=== PATIENT | male | born 1980 | race Caucasian/White ===

== ENCOUNTER → 2017-10-30 | Outpatient (CLI) | payer OTHER ==
[~2017-10-30] MED LIST: AMBI10TA OR; ATIV1TAB2 OR; CELE20TA OR; HALDOL PO; LITH300T2 OR; LITHIUM PO
[2017-10-30 17:38] LABS: LITHIUM LEVEL 0.58 MEQ/L (0.60-1.20)
== END ==
LOC: M WUC 11:04
PROVIDERS: ATTEND Nurse Practitioner Psychiatric/Mental Health
DX: F31.13 Bipolar disorder, current episode manic without psychotic features, severe (principal)

== ENCOUNTER 2019-03-06 10:31 | Emergency (ER) | payer OTHER ==
[~2019-03-06] VITALS: Ht 167.6 cm; Wt 68.2 kg
[2019-03-06] MEDS ORDERED: ADDE20CA3 PO (10:39)
[2019-03-06] MEDS ORDERED: DEPA500T2 PO (10:39)
[2019-03-06] MEDS ORDERED: KLON2TAB PO (10:39)
[2019-03-06] MEDS ORDERED: ABIL20TA5 PO (10:39)
--- NOTE | 2019-03-06 11:31 | REP ---
RIGHT HAND SERIES: Four views. HISTORY: Injury. FINDINGS: There is a comminuted slightly impacted and angulated boxer's fracture of the distal end of the 5th metacarpal. The angulation is apex dorsal. There is associated swelling. No other fracture is seen. IMPRESSION: Boxer's fracture distal aspect 5th metacarpal with apex dorsal angulation and impaction. Electronically Signed by Gregorio Ochoa MD 03/06/2019 01:37 P
[2019-03-06 12:13] VITALS: BP 121/68
== END 2019-03-06 12:14 | disposition home or self-care (01) ==
LOC: M ED 10:31
DX: S62.316A Displaced fracture of base of fifth metacarpal bone, right hand, initial encounter for closed fracture (principal); X58.XXXA Exposure to other specified factors, initial encounter; Y92.89 Other specified places as the place of occurrence of the external cause; Z79.899 Other long term (current) drug therapy

== ENCOUNTER 2021-12-26 11:14 | Emergency (ER) | payer MEDICARE, MEDICAID ==
[~2021-12-26 11:14] MED LIST changes: +ABIL20TA5 PO; +ADDE20CA3 PO; +DEPA500T2 PO; +KLON2TAB PO
[2021-12-26] MEDS ORDERED: QUET400T2 PO (11:26)
[2021-12-26] MEDS ORDERED: BUPR300T92 PO (11:26)
[2021-12-26] MEDS ORDERED: LAMO150T3 PO (11:26)
[2021-12-26] MEDS ORDERED: PRAZ1CAP PO (11:26)
[2021-12-26] MEDS ORDERED: ACETAMINOPHEN TAB 650MG DOSE (2X325MG) PO ONE (11:55)
[2021-12-26] MEDS ORDERED: ACETAMINOPHEN 500 MG TAB PO ONE (11:55)
[2021-12-26 12:08] LABS: BASO % 0.2 % (0.0-1.0); EOS % 0.3 % (0.0-3.0); HEMATOCRIT 38.6 % (42.0-52.0); HEMOGLOBIN 13.1 g/dl (13.5-17.5); LYMPH # 0.9 10^3/uL (1.5-5.0); LYMPH % 8.3 % (24.0-44.0); MEAN CORPUSCULAR HEMOGLOBIN 29.3 pg (27.0-33.0); MEAN CORPUSCULAR HGB CONC 33.9 g/dl (32.0-36.5); MEAN CORPUSCULAR VOLUME 86.4 fl (80.0-96.0); MONO # 1.2 10^3/uL (0.0-0.8); NEUTROPHILS # 8.4 10^3/uL (1.5-8.5); NEUTROPHILS % 79.9 % (36.0-66.0); PLATELET COUNT, AUTOMATED 172 10^3/uL (150-450); RED BLOOD COUNT 4.47 10^6/uL (4.30-6.10); WHITE BLOOD COUNT 10.6 10^3/uL (4.0-10.0)
[2021-12-26 12:30] LABS: ALBUMIN 3.7 GM/DL (3.2-5.2); ALT/SGPT 121 U/L (12-78); BILIRUBIN,DIRECT 0.4 MG/DL (0.0-0.2); BLOOD UREA NITROGEN 16 MG/DL (7-18); CALCIUM LEVEL 8.9 MG/DL (8.5-10.1); CARBON DIOXIDE LEVEL 24 MEQ/L (21-32); CHLORIDE LEVEL 101 MEQ/L (98-107); CREATININE FOR GFR 1.02 MG/DL (0.70-1.30); GLOMERULAR FILTRATION RATE > 60.0 (>60); GLUCOSE, FASTING 111 MG/DL (70-100); LIPASE 38 U/L (73-393); POTASSIUM SERUM 3.7 MEQ/L (3.5-5.1); SODIUM LEVEL 134 MEQ/L (136-145); TOTAL PROTEIN 7.1 GM/DL (6.4-8.2)
[2021-12-26] MEDS ORDERED: OSEL75CA PO (13:11)
[2021-12-26] MEDS ORDERED: PROAAER10 INH (13:22)
[2021-12-26] MEDS ORDERED: BACT800T5 PO (13:30)
[2021-12-26 13:36] VITALS: BP 121/65
== END 2021-12-26 13:38 | disposition home or self-care (01) ==
LOC: M ED 11:14
DX: J11.1 Influenza due to unidentified influenza virus with other respiratory manifestations (principal); B34.9 Viral infection, unspecified; J90 Pleural effusion, not elsewhere classified; R91.8 Other nonspecific abnormal finding of lung field

== ENCOUNTER 2021-12-28 10:09 | Inpatient (IN) | payer MEDICARE, MEDICAID ==
[~2021-12-28] VITALS: Ht 167.6 cm; Wt 77.2 kg
[~2021-12-28 10:09] MED LIST changes: +BACT800T5 PO; +BUPR300T92 PO; +LAMO150T3 PO; +OSEL75CA PO; +PRAZ1CAP PO; +PROAAER10 INH; +QUET400T2 PO
[2021-12-28] MEDS ORDERED: LIDOCAINE 1% MDV 20ML VIAL SC ONE (13:45)
[2021-12-28] MEDS ORDERED: ACETAMINOPHEN TAB 650MG DOSE (2X325MG) PO ONE (13:45)
[2021-12-28] MEDS ORDERED: NS 1,000 ML IV ONE ×2 (13:50→15:50)
[2021-12-28] MEDS ORDERED: CEFEPIME HCL 2 GM in D5W MINI-BAG PLUS 50 ML IV ONE (14:15)
[2021-12-28 14:39] LABS: BASO % 0.2 % (0.0-1.0); HEMATOCRIT 35.3 % (42.0-52.0); HEMOGLOBIN 11.9 g/dl (13.5-17.5); LYMPH # 0.6 10^3/uL (1.5-5.0); LYMPH % 4.1 % (24.0-44.0); MEAN CORPUSCULAR HEMOGLOBIN 29.1 pg (27.0-33.0); MEAN CORPUSCULAR HGB CONC 33.7 g/dl (32.0-36.5); MEAN CORPUSCULAR VOLUME 86.3 fl (80.0-96.0); MONO # 1.3 10^3/uL (0.0-0.8); MONO % 8.8 % (2.0-8.0); NEUTROPHILS # 12.9 10^3/uL (1.5-8.5); NEUTROPHILS % 85.8 % (36.0-66.0); PLATELET COUNT, AUTOMATED 194 10^3/uL (150-450); RED BLOOD COUNT 4.09 10^6/uL (4.30-6.10)
[2021-12-28 15:23] LABS: ALBUMIN 3.3 GM/DL (3.2-5.2); ALT/SGPT 82 U/L (12-78); BILIRUBIN,DIRECT 0.4 MG/DL (0.0-0.2); BILIRUBIN,TOTAL 0.7 MG/DL (0.2-1.0); BLOOD UREA NITROGEN 19 MG/DL (7-18); CALCIUM LEVEL 8.6 MG/DL (8.5-10.1); CARBON DIOXIDE LEVEL 24 MEQ/L (21-32); CHLORIDE LEVEL 98 MEQ/L (98-107); CREATININE FOR GFR 1.39 MG/DL (0.70-1.30); GLOMERULAR FILTRATION RATE > 60.0 (>60); GLUCOSE, FASTING 99 MG/DL (70-100); POTASSIUM SERUM 3.6 MEQ/L (3.5-5.1); SODIUM LEVEL 136 MEQ/L (136-145); TOTAL PROTEIN 6.9 GM/DL (6.4-8.2)
[2021-12-28] MEDS: NS 1,000 ML IV SCH ×2 (15:50→20:27)
[2021-12-28] MEDS ORDERED: VANCOMYCIN HCL 1,000 MG, VIAL MATE ADAPTER 1 EACH in NS 250 ML IV SCH (15:50)
[2021-12-28] MEDS ORDERED: ENOXAPARIN 40MG/0.4ML SYRINGE (J1650 PER 10MG) SC SCH (15:55)
[2021-12-28] MEDS ORDERED: VANCOMYCIN HCL 750 MG, VIAL MATE ADAPTER 1 EACH in NS 250 ML IV ONE ×3 (16:00→18:00)
[2021-12-28] MEDS ORDERED: VANCOMYCIN HCL 1,000 MG, VIAL MATE ADAPTER 1 EACH in NS 250 ML IV ONE ×7 (16:00→17:00)
[2021-12-28] MEDS ORDERED: ALBUTEROL SULFATE 2.5 MG/0.5 ML INH NEB SOLN NEB PRN (16:15)
[2021-12-28] MEDS ORDERED: BACT800T5 PO (16:25)
[2021-12-28] MEDS ORDERED: CLON1TAB17 PO (16:25)
[2021-12-28] MEDS ORDERED: CLON1TAB8 PO (16:28)
[2021-12-28] MEDS ORDERED: HOME MED LIST COMPLETE! XX SCH (16:30)
[2021-12-28] MEDS: PIPERACILLIN/TAZOBACTAM SOD 3.375 GM in D5W MINI-BAG PLUS 50 ML IV SCH ×2 (16:31→20:55)
[2021-12-28] MEDS ORDERED: PRAZOSIN 1 MG CAP PO PRN (17:00)
[2021-12-28 17:01] VITALS: BP 129/71
[2021-12-28 17:10] LABS: HEMOGLOBIN A1c 4.9 %
[2021-12-28] MEDS ORDERED: MORPHINE 2 MG/ML 1ML VIAL (J2270) IV PRN (17:10)
[2021-12-28] MEDS ORDERED: PILL CUTTER 1 EACH XX PRN (17:10)
[2021-12-28] MEDS ORDERED: traMADol 50 MG TAB PO PRN (17:10)
[2021-12-28 17:19] LABS: INR 1.25; PROTHROMBIN TIME 16.1 SECONDS (12.7-14.5)
[2021-12-28 17:20] LABS: PARTIAL THROMBOPLASTIN TIME 39.8 SECONDS (25.9-37.0)
[2021-12-28 17:36] LABS: D-DIMER QUANT 3573.77 ng/ml (<500)
[2021-12-28] MEDS: ACETAMINOPHEN TAB 650MG DOSE (2X325MG) PO PRN (17:43)
[2021-12-28] MEDS ORDERED: PIPERACILLIN/TAZOBACTAM SOD 3.375 GM in D5W MINI-BAG PLUS 50 ML IV SCH (18:00)
[2021-12-28] MEDS: PERCOCET 5MG/325MG TAB PO PRN (19:29)
[2021-12-28] MEDS: ENOXAPARIN 80MG/0.8ML SYRINGE (J1650 PER 10MG) SC SCH (19:30)
[2021-12-28 20:00] VITALS: BP 114/57
[2021-12-28] MEDS: DOCUSATE SODIUM 100MG CAPSULE PO SCH (20:54)
[2021-12-28] MEDS: QUEtiapine FUMARATE 200 MG TAB PO SCH (20:54)
[2021-12-29] VITALS (7 sets, daily range): BP systolic 111–132; BP diastolic 63–71
[2021-12-29] MEDS: NS 1,000 ML IV SCH ×2 (03:37→09:06)
[2021-12-29] MEDS: PIPERACILLIN/TAZOBACTAM SOD 3.375 GM in D5W MINI-BAG PLUS 50 ML IV SCH ×4 (03:37→20:56)
[2021-12-29] MEDS: ACETAMINOPHEN TAB 650MG DOSE (2X325MG) PO PRN ×2 (04:39→15:55)
[2021-12-29] MEDS: PERCOCET 5MG/325MG TAB PO PRN (05:27)
[2021-12-29] MEDS: VANCOMYCIN HCL 1,000 MG, VIAL MATE ADAPTER 1 EACH in NS 250 ML IV SCH ×2 (05:29→17:03)
[2021-12-29] MEDS: ENOXAPARIN 80MG/0.8ML SYRINGE (J1650 PER 10MG) SC SCH (06:19)
[2021-12-29 06:27] LABS: HEMATOCRIT 31.6 % (42.0-52.0); HEMOGLOBIN 10.6 g/dl (13.5-17.5); MEAN CORPUSCULAR HEMOGLOBIN 28.9 pg (27.0-33.0); MEAN CORPUSCULAR HGB CONC 33.5 g/dl (32.0-36.5); MEAN CORPUSCULAR VOLUME 86.1 fl (80.0-96.0); PLATELET COUNT, AUTOMATED 177 10^3/uL (150-450); RED BLOOD COUNT 3.67 10^6/uL (4.30-6.10); WHITE BLOOD COUNT 11.2 10^3/uL (4.0-10.0)
[2021-12-29 07:01] LABS: ALBUMIN 2.7 GM/DL (3.2-5.2); ALT/SGPT 71 U/L (12-78); BILIRUBIN,TOTAL 0.6 MG/DL (0.2-1.0); BLOOD UREA NITROGEN 14 MG/DL (7-18); CALCIUM LEVEL 7.7 MG/DL (8.5-10.1); CARBON DIOXIDE LEVEL 25 MEQ/L (21-32); CHLORIDE LEVEL 104 MEQ/L (98-107); CREATININE FOR GFR 1.15 MG/DL (0.70-1.30); GLOMERULAR FILTRATION RATE > 60.0 (>60); GLUCOSE, FASTING 119 MG/DL (70-100); SODIUM LEVEL 134 MEQ/L (136-145); TOTAL PROTEIN 6.2 GM/DL (6.4-8.2)
[2021-12-29] MEDS ORDERED: ISOVUE-370 76% 100ML VIAL As Ordered ONE (07:57)
[2021-12-29] MEDS: buPROPion **XL** TABLET 150MG (WELLBUTRIN XL) PO SCH (08:04)
[2021-12-29] MEDS: DOCUSATE SODIUM 100MG CAPSULE PO SCH ×2 (08:04→20:56)
[2021-12-29] MEDS: lamoTRIgine 100MG TAB PO SCH (08:04)
[2021-12-29] MEDS: POTASSIUM CHLORIDE 10MEQ SR TABLET PO SCH ×2 (08:04→09:52)
[2021-12-29] MEDS: LR 1,000 ML IV SCH (11:00)
[2021-12-29] MEDS: FOLIC ACID 1 MG TAB PO SCH (12:05)
[2021-12-29] MEDS: THIAMINE 100 MG TAB PO SCH ×2 (12:06→20:56)
[2021-12-29] MEDS: MULTIVITAMINS/MINERALS THERAP 1 TAB PO SCH (12:06)
[2021-12-29] MEDS: OSELTAMIVIR PHOSPHATE 75 MG CAP (TAMIFLU) PO SCH ×2 (13:29→20:56)
[2021-12-29 14:26] LABS: HEPATITIS B CORE ANTIBODY IGM NEGATIVE (NEGATIVE); HEPATITIS B SURFACE ANTIGEN NEGATIVE (NEGATIVE); HIV 1&2 SCREEN CENTAUR NEGATIVE (NEGATIVE)
[2021-12-29 15:05] LABS: HEPATITIS C VIRUS ABY INDEX > 11.0 INDEX (<0.8)
[2021-12-29 15:06] LABS: HEPATITIS C VIRUS ABY INDEX > 11.0 INDEX (<0.8)
[2021-12-29] MEDS ORDERED: ONDANSETRON 4MG/2ML VIAL IV PRN (15:30)
[2021-12-29] MEDS: QUEtiapine FUMARATE 200 MG TAB PO SCH (20:55)
[2021-12-30] VITALS: BP 97/55
[2021-12-30] MEDS: LR 1,000 ML IV SCH ×2 (01:25→03:32)
[2021-12-30] MEDS: PIPERACILLIN/TAZOBACTAM SOD 3.375 GM in D5W MINI-BAG PLUS 50 ML IV SCH ×4 (03:33→20:58)
[2021-12-30 04:00] VITALS: BP 125/60
[2021-12-30 05:30] LABS: HEMATOCRIT 30.5 % (42.0-52.0); HEMOGLOBIN 10.2 g/dl (13.5-17.5); MEAN CORPUSCULAR HEMOGLOBIN 28.6 pg (27.0-33.0); MEAN CORPUSCULAR HGB CONC 33.4 g/dl (32.0-36.5); MEAN CORPUSCULAR VOLUME 85.4 fl (80.0-96.0); PLATELET COUNT, AUTOMATED 192 10^3/uL (150-450); RED BLOOD COUNT 3.57 10^6/uL (4.30-6.10); WHITE BLOOD COUNT 10.5 10^3/uL (4.0-10.0)
[2021-12-30 05:53] LABS: ALBUMIN 2.4 GM/DL (3.2-5.2); ALT/SGPT 70 U/L (12-78); BILIRUBIN,TOTAL 0.4 MG/DL (0.2-1.0); BLOOD UREA NITROGEN 7 MG/DL (7-18); CALCIUM LEVEL 7.7 MG/DL (8.5-10.1); CARBON DIOXIDE LEVEL 24 MEQ/L (21-32); CHLORIDE LEVEL 107 MEQ/L (98-107); CREATININE FOR GFR 0.85 MG/DL (0.70-1.30); GLOMERULAR FILTRATION RATE > 60.0 (>60); GLUCOSE, FASTING 95 MG/DL (70-100); POTASSIUM SERUM 3.4 MEQ/L (3.5-5.1); SODIUM LEVEL 137 MEQ/L (136-145); TOTAL PROTEIN 5.8 GM/DL (6.4-8.2); VANCOMYCIN LEVEL TROUGH 4.9 UG/ML (10.0-20.0)
[2021-12-30] MEDS: VANCOMYCIN HCL 1,000 MG, VIAL MATE ADAPTER 1 EACH in NS 250 ML IV SCH ×3 (06:08→17:17)
[2021-12-30] MEDS ORDERED: POTASSIUM CHLORIDE 10MEQ SR TABLET PO ONE (07:50)
[2021-12-30 07:52] VITALS: BP 115/67
[2021-12-30] MEDS: ENOXAPARIN 40MG/0.4ML SYRINGE (J1650 PER 10MG) SC SCH (08:08)
[2021-12-30] MEDS: DOCUSATE SODIUM 100MG CAPSULE PO SCH ×2 (08:08→20:57)
[2021-12-30] MEDS: MULTIVITAMINS/MINERALS THERAP 1 TAB PO SCH (08:09)
[2021-12-30] MEDS: FOLIC ACID 1 MG TAB PO SCH (08:09)
[2021-12-30] MEDS: lamoTRIgine 100MG TAB PO SCH (08:09)
[2021-12-30] MEDS: buPROPion **XL** TABLET 150MG (WELLBUTRIN XL) PO SCH (08:09)
[2021-12-30] MEDS: THIAMINE 100 MG TAB PO SCH ×2 (08:09→20:58)
[2021-12-30] MEDS: OSELTAMIVIR PHOSPHATE 75 MG CAP (TAMIFLU) PO SCH ×2 (08:09→20:57)
[2021-12-30 12:22] VITALS: BP 117/69
[2021-12-30 16:25] VITALS: BP 122/65
[2021-12-30 20:00] VITALS: BP 134/75
[2021-12-30] MEDS: QUEtiapine FUMARATE 200 MG TAB PO SCH (20:58)
[2021-12-30] MEDS ORDERED: clonazePAM 0.5 MG TAB PO ONE (22:00)
[2021-12-31] VITALS: BP 121/61
[2021-12-31] MEDS: VANCOMYCIN HCL 1,000 MG, VIAL MATE ADAPTER 1 EACH in NS 250 ML IV SCH ×3 (01:54→17:27)
[2021-12-31 04:00] VITALS: BP 102/57
[2021-12-31] MEDS: PIPERACILLIN/TAZOBACTAM SOD 3.375 GM in D5W MINI-BAG PLUS 50 ML IV SCH ×2 (04:56→09:35)
[2021-12-31 08:23] VITALS: BP 126/77
[2021-12-31] MEDS: FOLIC ACID 1 MG TAB PO SCH (08:38)
[2021-12-31] MEDS: MULTIVITAMINS/MINERALS THERAP 1 TAB PO SCH (08:38)
[2021-12-31] MEDS: DOCUSATE SODIUM 100MG CAPSULE PO SCH ×2 (08:38→21:25)
[2021-12-31] MEDS: THIAMINE 100 MG TAB PO SCH ×2 (08:38→21:25)
[2021-12-31] MEDS: buPROPion **XL** TABLET 150MG (WELLBUTRIN XL) PO SCH (08:38)
[2021-12-31] MEDS: lamoTRIgine 100MG TAB PO SCH (08:38)
[2021-12-31] MEDS: OSELTAMIVIR PHOSPHATE 75 MG CAP (TAMIFLU) PO SCH ×2 (08:38→21:25)
[2021-12-31] MEDS: ENOXAPARIN 40MG/0.4ML SYRINGE (J1650 PER 10MG) SC SCH (08:39)
[2021-12-31 09:42] LABS: HEMATOCRIT 33.7 % (42.0-52.0); MEAN CORPUSCULAR HEMOGLOBIN 28.5 pg (27.0-33.0); MEAN CORPUSCULAR HGB CONC 32.6 g/dl (32.0-36.5); MEAN CORPUSCULAR VOLUME 87.3 fl (80.0-96.0); PLATELET COUNT, AUTOMATED 226 10^3/uL (150-450); RED BLOOD COUNT 3.86 10^6/uL (4.30-6.10); WHITE BLOOD COUNT 10.2 10^3/uL (4.0-10.0)
[2021-12-31 10:36] LABS: ALBUMIN 2.5 GM/DL (3.2-5.2); ALT/SGPT 73 U/L (12-78); BILIRUBIN,TOTAL 0.7 MG/DL (0.2-1.0); BLOOD UREA NITROGEN 6 MG/DL (7-18); CALCIUM LEVEL 8.2 MG/DL (8.5-10.1); CARBON DIOXIDE LEVEL 25 MEQ/L (21-32); CHLORIDE LEVEL 107 MEQ/L (98-107); CREATININE FOR GFR 0.82 MG/DL (0.70-1.30); GLOMERULAR FILTRATION RATE > 60.0 (>60); GLUCOSE, FASTING 96 MG/DL (70-100); POTASSIUM SERUM 3.5 MEQ/L (3.5-5.1); SODIUM LEVEL 140 MEQ/L (136-145); TOTAL PROTEIN 6.5 GM/DL (6.4-8.2); VANCOMYCIN LEVEL TROUGH 10.5 UG/ML (10.0-20.0)
[2021-12-31 12:00] VITALS: BP 119/69
[2021-12-31 15:50] VITALS: BP 125/75
[2021-12-31] MEDS ORDERED: PIPERACILLIN/TAZOBACTAM SOD 3.375 GM in D5W MINI-BAG PLUS 50 ML IV SCH (16:00)
[2021-12-31 20:28] VITALS: BP 130/75
[2021-12-31] MEDS: QUEtiapine FUMARATE 200 MG TAB PO SCH (21:25)
[2022-01-01] MEDS: VANCOMYCIN HCL 1,000 MG, VIAL MATE ADAPTER 1 EACH in NS 250 ML IV SCH ×2 (03:07→09:16)
[2022-01-01 04:00] VITALS: BP 112/62
[2022-01-01 06:50] LABS: HEMATOCRIT 33.5 % (42.0-52.0); HEMOGLOBIN 11.1 g/dl (13.5-17.5); MEAN CORPUSCULAR HGB CONC 33.1 g/dl (32.0-36.5); MEAN CORPUSCULAR VOLUME 87.5 fl (80.0-96.0); PLATELET COUNT, AUTOMATED 251 10^3/uL (150-450); RED BLOOD COUNT 3.83 10^6/uL (4.30-6.10); WHITE BLOOD COUNT 7.9 10^3/uL (4.0-10.0)
[2022-01-01 07:30] LABS: ALBUMIN 2.5 GM/DL (3.2-5.2); ALT/SGPT 73 U/L (12-78); BILIRUBIN,TOTAL 0.5 MG/DL (0.2-1.0); BLOOD UREA NITROGEN 5 MG/DL (7-18); CALCIUM LEVEL 7.9 MG/DL (8.5-10.1); CARBON DIOXIDE LEVEL 28 MEQ/L (21-32); CHLORIDE LEVEL 107 MEQ/L (98-107); GLOMERULAR FILTRATION RATE > 60.0 (>60); GLUCOSE, FASTING 96 MG/DL (70-100); POTASSIUM SERUM 3.5 MEQ/L (3.5-5.1); SODIUM LEVEL 140 MEQ/L (136-145); TOTAL PROTEIN 6.6 GM/DL (6.4-8.2)
[2022-01-01 07:49] VITALS: BP 128/75
[2022-01-01] MEDS: OSELTAMIVIR PHOSPHATE 75 MG CAP (TAMIFLU) PO SCH ×2 (09:00→20:43)
[2022-01-01] MEDS: DOCUSATE SODIUM 100MG CAPSULE PO SCH ×2 (09:00→20:43)
[2022-01-01 10:09] LABS: VANCOMYCIN RANDOM 19.4 UG/ML
[2022-01-01] MEDS: VANCOMYCIN HCL 750 MG, VIAL MATE ADAPTER 1 EACH in NS 250 ML IV SCH ×2 (11:50→20:44)
[2022-01-01] MEDS: VANCOMYCIN HCL 500 MG in D5W MINI-BAG PLUS 100 ML IV SCH ×2 (13:00→22:43)
[2022-01-01] MEDS ORDERED: MIDAZOLAM INJ 2MG/2ML VIAL (J2250 PER 1MG) As Ordered ONE (15:22)
[2022-01-01] MEDS ORDERED: fentaNYL 100 MCG/2 ML INJECTION As Ordered ONE (15:22)
[2022-01-01] MEDS ORDERED: LIDOCAINE 2% 100MG/5ML SDV (FOR ANES.) As Ordered ONE (15:23)
[2022-01-01] MEDS ORDERED: propofoL 200 MG/20 ML VIAL As Ordered ONE ×2 (15:23→16:07)
[2022-01-01] MEDS ORDERED: LIDOCAINE VISCOUS 2% SOLN 15ML UDC As Ordered ONE (15:38)
[2022-01-01] MEDS ORDERED: CETACAINE SPRAY 5GM As Ordered ONE (15:38)
[2022-01-01] MEDS ORDERED: oxyCODONE 5MG TAB PO PRN (16:30)
[2022-01-01] MEDS ORDERED: ONDANSETRON 4MG/2ML VIAL IV PRN (16:30)
[2022-01-01 16:50] VITALS: BP 125/36
[2022-01-01] MEDS: ENOXAPARIN 40MG/0.4ML SYRINGE (J1650 PER 10MG) SC SCH (16:56)
[2022-01-01] MEDS: MULTIVITAMINS/MINERALS THERAP 1 TAB PO SCH (16:56)
[2022-01-01] MEDS: buPROPion **XL** TABLET 150MG (WELLBUTRIN XL) PO SCH (16:56)
[2022-01-01] MEDS: FOLIC ACID 1 MG TAB PO SCH (16:57)
[2022-01-01] MEDS: lamoTRIgine 100MG TAB PO SCH (16:57)
[2022-01-01 20:00] VITALS: BP 139/67
[2022-01-01] MEDS: QUEtiapine FUMARATE 200 MG TAB PO SCH (20:43)
[2022-01-02] MEDS: VANCOMYCIN HCL 750 MG, VIAL MATE ADAPTER 1 EACH in NS 250 ML IV SCH ×3 (04:12→20:46)
[2022-01-02 04:30] VITALS: BP 105/72
[2022-01-02] MEDS: VANCOMYCIN HCL 500 MG in D5W MINI-BAG PLUS 100 ML IV SCH ×3 (05:55→22:32)
[2022-01-02 06:30] LABS: HEMATOCRIT 32.6 % (42.0-52.0); HEMOGLOBIN 10.9 g/dl (13.5-17.5); MEAN CORPUSCULAR HEMOGLOBIN 29.3 pg (27.0-33.0); MEAN CORPUSCULAR HGB CONC 33.4 g/dl (32.0-36.5); MEAN CORPUSCULAR VOLUME 87.6 fl (80.0-96.0); PLATELET COUNT, AUTOMATED 296 10^3/uL (150-450); RED BLOOD COUNT 3.72 10^6/uL (4.30-6.10)
[2022-01-02 06:59] LABS: ALBUMIN 2.3 GM/DL (3.2-5.2); ALT/SGPT 65 U/L (12-78); BILIRUBIN,TOTAL 0.5 MG/DL (0.2-1.0); BLOOD UREA NITROGEN 5 MG/DL (7-18); CALCIUM LEVEL 7.9 MG/DL (8.5-10.1); CARBON DIOXIDE LEVEL 26 MEQ/L (21-32); CHLORIDE LEVEL 110 MEQ/L (98-107); CREATININE FOR GFR 0.76 MG/DL (0.70-1.30); GLOMERULAR FILTRATION RATE > 60.0 (>60); GLUCOSE, FASTING 98 MG/DL (70-100); POTASSIUM SERUM 3.8 MEQ/L (3.5-5.1); SODIUM LEVEL 143 MEQ/L (136-145); TOTAL PROTEIN 6.4 GM/DL (6.4-8.2)
[2022-01-02 08:23] VITALS: BP 133/78
[2022-01-02] MEDS: lamoTRIgine 100MG TAB PO SCH (08:30)
[2022-01-02] MEDS: buPROPion **XL** TABLET 150MG (WELLBUTRIN XL) PO SCH (08:30)
[2022-01-02] MEDS: MULTIVITAMINS/MINERALS THERAP 1 TAB PO SCH (08:30)
[2022-01-02] MEDS: DOCUSATE SODIUM 100MG CAPSULE PO SCH ×2 (08:30→20:46)
[2022-01-02] MEDS: FOLIC ACID 1 MG TAB PO SCH (08:31)
[2022-01-02] MEDS: ENOXAPARIN 40MG/0.4ML SYRINGE (J1650 PER 10MG) SC SCH (08:31)
[2022-01-02] MEDS: OSELTAMIVIR PHOSPHATE 75 MG CAP (TAMIFLU) PO SCH ×2 (08:31→20:46)
[2022-01-02 12:07] VITALS: BP 129/74
[2022-01-02 16:00] VITALS: BP 136/80
[2022-01-02 20:00] VITALS: BP 125/75
[2022-01-02] MEDS: QUEtiapine FUMARATE 200 MG TAB PO SCH (20:46)
[2022-01-03 04:00] VITALS: BP 120/70
[2022-01-03] MEDS: VANCOMYCIN HCL 750 MG, VIAL MATE ADAPTER 1 EACH in NS 250 ML IV SCH ×3 (04:08→20:46)
[2022-01-03] MEDS: VANCOMYCIN HCL 500 MG in D5W MINI-BAG PLUS 100 ML IV SCH ×3 (05:29→22:09)
[2022-01-03 05:30] LABS: HEMATOCRIT 32.3 % (42.0-52.0); HEMOGLOBIN 10.6 g/dl (13.5-17.5); MEAN CORPUSCULAR HEMOGLOBIN 28.5 pg (27.0-33.0); MEAN CORPUSCULAR HGB CONC 32.8 g/dl (32.0-36.5); MEAN CORPUSCULAR VOLUME 86.8 fl (80.0-96.0); PLATELET COUNT, AUTOMATED 312 10^3/uL (150-450); RED BLOOD COUNT 3.72 10^6/uL (4.30-6.10); WHITE BLOOD COUNT 7.7 10^3/uL (4.0-10.0)
[2022-01-03 06:10] LABS: ALBUMIN 2.6 GM/DL (3.2-5.2); ALT/SGPT 67 U/L (12-78); BILIRUBIN,TOTAL 0.2 MG/DL (0.2-1.0); BLOOD UREA NITROGEN 3 MG/DL (7-18); CARBON DIOXIDE LEVEL 26 MEQ/L (21-32); CHLORIDE LEVEL 111 MEQ/L (98-107); CREATININE FOR GFR 0.78 MG/DL (0.70-1.30); GLOMERULAR FILTRATION RATE > 60.0 (>60); GLUCOSE, FASTING 91 MG/DL (70-100); POTASSIUM SERUM 3.8 MEQ/L (3.5-5.1); SODIUM LEVEL 142 MEQ/L (136-145); TOTAL PROTEIN 6.1 GM/DL (6.4-8.2)
[2022-01-03 07:32] VITALS: BP 127/66
[2022-01-03] MEDS: OSELTAMIVIR PHOSPHATE 75 MG CAP (TAMIFLU) PO SCH ×2 (08:28→20:45)
[2022-01-03] MEDS: ENOXAPARIN 40MG/0.4ML SYRINGE (J1650 PER 10MG) SC SCH (08:28)
[2022-01-03] MEDS: lamoTRIgine 100MG TAB PO SCH (08:29)
[2022-01-03] MEDS: MULTIVITAMINS/MINERALS THERAP 1 TAB PO SCH (08:29)
[2022-01-03] MEDS: DOCUSATE SODIUM 100MG CAPSULE PO SCH ×2 (08:29→20:45)
[2022-01-03] MEDS: buPROPion **XL** TABLET 150MG (WELLBUTRIN XL) PO SCH (08:29)
[2022-01-03] MEDS: FOLIC ACID 1 MG TAB PO SCH (08:29)
[2022-01-03 11:30] VITALS: BP 126/73
[2022-01-03 14:00] VITALS: BP 126/74
[2022-01-03] MEDS: QUEtiapine FUMARATE 200 MG TAB PO SCH (20:45)
[2022-01-03 21:00] VITALS: BP 127/73
[2022-01-04] MEDS: VANCOMYCIN HCL 750 MG, VIAL MATE ADAPTER 1 EACH in NS 250 ML IV SCH (04:20)
[2022-01-04] MEDS: VANCOMYCIN HCL 500 MG in D5W MINI-BAG PLUS 100 ML IV SCH (05:26)
[2022-01-04 05:33] VITALS: BP 112/61
[2022-01-04] MEDS ORDERED: PROV108A INH (08:58)
[2022-01-04] MEDS: ENOXAPARIN 40MG/0.4ML SYRINGE (J1650 PER 10MG) SC SCH (09:00)
[2022-01-04] MEDS: lamoTRIgine 100MG TAB PO SCH (09:02)
[2022-01-04] MEDS: FOLIC ACID 1 MG TAB PO SCH (09:02)
[2022-01-04] MEDS: DOCUSATE SODIUM 100MG CAPSULE PO SCH (09:03)
[2022-01-04] MEDS: buPROPion **XL** TABLET 150MG (WELLBUTRIN XL) PO SCH (09:03)
[2022-01-04] MEDS: MULTIVITAMINS/MINERALS THERAP 1 TAB PO SCH (09:03)
[2022-01-04] MEDS: OSELTAMIVIR PHOSPHATE 75 MG CAP (TAMIFLU) PO SCH (09:03)
[2022-01-06 20:07] LABS: HEPATITIS A IgG TOTAL Negative (Negative); HEPATITIS B CORE ANTIBODY IGG Negative (Negative); HEPATITIS C QUANTITATION 809000 IU/mL (.); HEPATITIS C VIRUS GENOTYPE 1a (.)
[2022-01-07 02:06] LABS: ASPERGILLUS FLAVUS ABY Negative (Neg:<1:1); ASPERGILLUS FUMIGATUS ABY Negative (Neg:<1:1); ASPERGILLUS NIGER ABY Negative (Neg:<1:1); BLASTOMYCES ANTIBODY LEVEL Negative (Neg:<1:1); CRYPTOCOCCUS ANTIBODY SERUM Negative (Neg:<1:2)
== END 2022-01-04 11:08 | disposition home or self-care (01) | DRG 871 ==
LOC: M ED 10:09 → EEVIPCON 15:48 → M ED INP 15:48 → ENRESERV 16:10 → M PCU 17:00 → M MSPAV 01-03 11:48
PROVIDERS: ADMIT Internal Medicine; ATTEND Family Medicine
PROC: 0H98XZZ Drainage of Buttock Skin, External Approach (ICD-10-PCS; 2021-12-28)
PROC: B246ZZ4 Ultrasonography of Right and Left Heart, Transesophageal (ICD-10-PCS; principal; 2022-01-01 15:15)
DX: A41.02 Sepsis due to Methicillin resistant Staphylococcus aureus (principal); J18.9 Pneumonia, unspecified organism; G93.41 Metabolic encephalopathy; L03.317 Cellulitis of buttock; N17.9 Acute kidney failure, unspecified; I76 Septic arterial embolism; J90 Pleural effusion, not elsewhere classified; J98.11 Atelectasis; F31.9 Bipolar disorder, unspecified; F41.1 Generalized anxiety disorder; R74.01 Elevation of levels of liver transaminase levels; R53.1 Weakness; Z20.822 Contact with and (suspected) exposure to COVID-19; Z79.899 Other long term (current) drug therapy; E87.6 Hypokalemia; Z87.891 Personal history of nicotine dependence; F12.10 Cannabis abuse, uncomplicated; Z91.14 Patient's other noncompliance with medication regimen; B19.20 Unspecified viral hepatitis C without hepatic coma; R07.89 Other chest pain

== ENCOUNTER 2022-01-04 15:30 | Outpatient (CLI) | payer MEDICARE, MEDICAID ==
[~2022-01-04] VITALS: Ht 167.6 cm; Wt 79.9 kg
[~2022-01-04 15:30] MED LIST changes: +CLON1TAB17 PO; +CLON1TAB8 PO; +DALBAVANCIN 1,500 MG in D5W 250 ML IV ONE; +PROV108A INH
[2022-01-04 15:56] VITALS: BP 135/86
[2022-01-04 17:20] VITALS: BP 140/85
== END 2022-01-04 17:20 | disposition home or self-care (01) ==
LOC: M INFU 15:30
PROVIDERS: ATTEND Internal Medicine Infectious Disease
DX: L02.91 Cutaneous abscess, unspecified (principal); B95.62 Methicillin resistant Staphylococcus aureus infection as the cause of diseases classified elsewhere
CPT/HCPCS: 96365; J0875

== ENCOUNTER 2022-01-15 15:20 | Outpatient (CLI) | payer MEDICARE, MEDICAID ==
[~2022-01-15] VITALS: Ht 167.6 cm; Wt 79.9 kg
[~2022-01-15 15:20] MED LIST changes: -DALBAVANCIN 1,500 MG in D5W 250 ML IV ONE
[2022-01-15 15:30] VITALS: BP 137/86
[2022-01-15] MEDS ORDERED: DALBAVANCIN 1,500 MG in D5W 250 ML IV ONE (15:30)
[2022-01-15 15:58] LABS: BASO # 0.1 10^3/uL (0.0-0.2); BASO % 0.6 % (0.0-1.0); EOS # 0.2 10^3/uL (0.0-0.5); EOS % 2.4 % (0.0-3.0); HEMATOCRIT 39.9 % (42.0-52.0); HEMOGLOBIN 12.7 g/dl (13.5-17.5); LYMPH # 1.3 10^3/uL (1.5-5.0); LYMPH % 15.8 % (24.0-44.0); MEAN CORPUSCULAR HEMOGLOBIN 28.6 pg (27.0-33.0); MEAN CORPUSCULAR HGB CONC 31.8 g/dl (32.0-36.5); MEAN CORPUSCULAR VOLUME 89.9 fl (80.0-96.0); MONO # 0.6 10^3/uL (0.0-0.8); MONO % 6.6 % (2.0-8.0); NEUTROPHILS # 6.3 10^3/uL (1.5-8.5); NEUTROPHILS % 74.4 % (36.0-66.0); PLATELET COUNT, AUTOMATED 311 10^3/uL (150-450); RED BLOOD COUNT 4.44 10^6/uL (4.30-6.10); WHITE BLOOD COUNT 8.5 10^3/uL (4.0-10.0)
[2022-01-15 16:23] LABS: ALBUMIN 3.7 GM/DL (3.2-5.2); ALT/SGPT 224 U/L (12-78); BILIRUBIN,TOTAL 0.5 MG/DL (0.2-1.0); BLOOD UREA NITROGEN 15 MG/DL (7-18); CALCIUM LEVEL 9.2 MG/DL (8.5-10.1); CARBON DIOXIDE LEVEL 25 MEQ/L (21-32); CHLORIDE LEVEL 105 MEQ/L (98-107); CREATININE FOR GFR 1.02 MG/DL (0.70-1.30); GLOMERULAR FILTRATION RATE > 60.0 (>60); GLUCOSE, FASTING 91 MG/DL (70-100); POTASSIUM SERUM 4.4 MEQ/L (3.5-5.1); SODIUM LEVEL 139 MEQ/L (136-145); TOTAL PROTEIN 7.5 GM/DL (6.4-8.2)
[2022-01-15 16:38] LABS: ERYTHROCYTE SEDIMENTATION RATE 18 mm/hr (0-15)
[2022-01-15 16:40] LABS: HEPATITIS B SURFACE ANTIGEN NEGATIVE (NEGATIVE)
[2022-01-15 17:00] VITALS: BP 139/94
== END 2022-01-15 17:00 | disposition home or self-care (01) ==
LOC: M INFU 15:20
PROVIDERS: ATTEND Internal Medicine Infectious Disease
DX: J15.212 Pneumonia due to Methicillin resistant Staphylococcus aureus (principal)
CPT/HCPCS: 36592; 80053; 85025; 85652; 86140; 87340; 96365; J0875